=== PATIENT | female | born 1985 | race Caucasian/White ===

== ENCOUNTER 2017-12-17 10:35 | Outpatient (CLI) | payer BC | END 2017-12-17 10:36 | disposition home or self-care (01) | LOC: BICULT 10:35 | PROVIDERS: ATTEND Family Medicine | DX: Z34.82 Encounter for supervision of other normal pregnancy, second trimester (principal) | CPT/HCPCS: 76805 ==

== ENCOUNTER 2018-05-04 06:33 | Inpatient (IN) | payer BC ==
[2018-05-04] MEDS ORDERED: Misoprostol 200 MCG TAB PR PRN ×2 (07:17→09:22)
[2018-05-04] MEDS ORDERED: Ondansetron HCl/PF 4 MG/2 ML Vial IVP PRN ×3 (07:17→17:18)
[2018-05-04] MEDS ORDERED: Lidocaine 1% (PF) 30 ML VIAL SC PRN ×2 (07:17→09:24)
[2018-05-04] MEDS ORDERED: Ibuprofen 800 MG TAB PO PRN ×2 (07:17→09:25)
[2018-05-04] MEDS ORDERED: NS w/ Oxytocin 10 units 500 ML IV SCH ×2 (07:17)
[2018-05-04] MEDS ORDERED: NS / Oxytocin 40 units/1000ml 1,000 ML IV PRN (07:17)
[2018-05-04] MEDS ORDERED: Promethazine HCl 25 MG/ML VIAL IM PRN ×2 (07:17→09:27)
[2018-05-04] MEDS ORDERED: Lactated Ringer's 1,000 ML IV SCH ×3 (07:17→09:27)
[2018-05-04] MEDS ORDERED: Acetaminophen 500 MG TAB PO PRN ×2 (07:17→09:27)
[2018-05-04 07:39] LABS: Hemoglobin 11.4 g/dL (12.0-16.0); Mean Corpuscular HGB CONC 34.3 g/dL (32.0-36.0); Mean Corpuscular Hemoglobin 29.6 pg (27.0-31.0); Mean Corpuscular Volume 86.3 fL (78.0-98.0); Mean Platelet Volume 8.7 fL (7.4-10.4); Platelet Count 226 thou/uL (130-400); RBC Distribution Width 11.5 % (11.5-14.5); Red Blood Cell (RBC) Count 3.86 mill/uL (4.20-5.40); White Blood Cell (WBC) Count 8.9 thou/uL (4.8-10.8)
[2018-05-04 07:41] VITALS: BMI 28.1
[2018-05-04] MEDS ORDERED: Oxytocin 10 UNITS/ML VIAL ONE (07:42)
[2018-05-04] MEDS ORDERED: NS w/ Oxytocin 10 units 500 ML ONE (07:42)
[2018-05-04] MEDS ORDERED: Lanolin Ointment 7 GM TUBE TOP PRN ×2 (08:03→17:18)
[2018-05-04] MEDS ORDERED: Benzocaine/Menthol 20-0.5% 60 ML CAN TOP PRN (08:03)
[2018-05-04] MEDS ORDERED: NS / Oxytocin 40 units/1000ml 1,000 ML IV SCH ×2 (08:03→17:18)
[2018-05-04] MEDS ORDERED: traMADol HCl 50 MG TAB PO PRN (08:03)
[2018-05-04] MEDS ORDERED: Preparation H Ointment 28 GM TUBE PR PRN ×2 (08:03→17:18)
[2018-05-04] MEDS ORDERED: Milk Of Magnesia 30 ML UDCUP PO PRN ×2 (08:03→17:18)
[2018-05-04] MEDS ORDERED: Bisacodyl 10 MG SUPP PR PRN ×2 (08:03→17:18)
[2018-05-04] MEDS ORDERED: diphenhydrAMINE 25 MG CAP PO PRN ×2 (08:03→17:18)
[2018-05-04 08:27] LABS: Syphilis Antibody Nonreactive (Nonreactive); Syphilis Antibody Index 0.04 S/CO (<1.00 Non-Reactive)
[2018-05-04 08:28] LABS: HBSAg Index 0.19 S/CO (0-0.99); Hep B Surf Ag Non-Reactive S/CO (NonReactive)
[2018-05-04] MEDS ORDERED: DISCONTINUE ALL PREVIOUS NARCOTICS FS SCH (08:30)
[2018-05-04] MEDS ORDERED: Bupivacaine 0.5% 20 ML, fentaNYL Citrate/PF 400 MCG in Sodium Chloride 0.9% 72 ML EPIDURAL SCH (08:30)
[2018-05-04] MEDS ORDERED: Ferrous Sulfate 325 MG TAB PO SCH ×2 (09:00→17:00)
[2018-05-04] MEDS ORDERED: Prenatal Vitamin 1 TAB PO SCH (09:00)
[2018-05-04] MEDS ORDERED: Docusate Calcium (SURFAK) 240 MG CAP PO SCH (09:00)
[2018-05-04] MEDS ORDERED: Carboprost 250 MCG/ML AMP IM PRN (09:23)
[2018-05-04] MEDS ORDERED: Methylergonovine 0.2 MG/ML VIAL IM PRN (09:23)
[2018-05-04] MEDS ORDERED: NS w/ Oxytocin 10 units 500 ML IVPB SCH (09:30)
[2018-05-04] MEDS ORDERED: Naloxone HCl 0.4 mg/ml Vial IVP PRN ×2 (09:33)
[2018-05-04] MEDS ORDERED: ePHEDrine/0.9% NaCl/PF SYRINGE 50 mg/10 ml SLOW IVP PRN (09:33)
[2018-05-04] MEDS ORDERED: Lactated Ringer's 500 ML IV PRN (09:33)
[2018-05-04] MEDS ORDERED: fentaNYL Citrate/PF 400 MCG, Bupivacaine 0.5% 20 ML in Sodium Chloride 0.9% 72 ML EPIDURAL SCH (09:45)
[2018-05-04] MEDS ORDERED: Communication Order-Pharmacy FS SCH (09:45)
[2018-05-04] MEDS ORDERED: Ibuprofen 800 MG TAB PO SCH (14:00)
[2018-05-04] MEDS ORDERED: Adacel (T-DAP) 0.5 ML VIAL IM ONE (17:18)
[2018-05-04] MEDS: Docusate Calcium (SURFAK) 240 MG CAP PO SCH (20:32)
[2018-05-04] MEDS: Ibuprofen 800 MG TAB PO SCH (20:32)
[2018-05-04] MEDS ORDERED: Bupivacaine/Epinephrine 0.25% 30 ML VIAL ONE (21:00)
[2018-05-05] MEDS: Ibuprofen 800 MG TAB PO SCH ×3 (05:23→21:12)
[2018-05-05] MEDS: Docusate Calcium (SURFAK) 240 MG CAP PO SCH ×2 (09:50→21:11)
[2018-05-05] MEDS: Prenatal Vitamin 1 TAB PO SCH (09:50)
[2018-05-05] MEDS: traMADol HCl 50 MG TAB PO PRN (20:03)
[2018-05-06] MEDS: traMADol HCl 50 MG TAB PO PRN (04:07)
[2018-05-06] MEDS: Ibuprofen 800 MG TAB PO SCH ×2 (06:50→08:47)
[2018-05-06 07:56] VITALS: BP 123/73; TEMP 98.9
[2018-05-06] MEDS: Docusate Calcium (SURFAK) 240 MG CAP PO SCH (08:47)
[2018-05-06] MEDS: Prenatal Vitamin 1 TAB PO SCH (08:47)
== END 2018-05-06 09:35 | disposition home or self-care (01) | DRG 775 ==
LOC: L&D 06:33 → 3SW 17:26 → EDSTATUS 05-08 14:24
PROVIDERS: ADMIT Family Medicine; ATTEND Family Medicine
PROC: 10E0XZZ Delivery of Products of Conception, External Approach (ICD-10-PCS; principal; 2018-05-04)
PROC: 10907ZC Drainage of Amniotic Fluid, Therapeutic from Products of Conception, Via Natural or Artificial Opening (ICD-10-PCS; 2018-05-04)
PROC: 3E033VJ Introduction of Other Hormone into Peripheral Vein, Percutaneous Approach (ICD-10-PCS; 2018-05-04)
DX: O80 Encounter for full-term uncomplicated delivery (principal); Z3A.39 39 weeks gestation of pregnancy; Z37.0 Single live birth
CPT/HCPCS: 36415; 51702; 85027; 86780; 86850; 86900; 86901; 87340; J2590; J3010; J3490; J7050

== ENCOUNTER 2019-02-10 10:28 | Outpatient (CLI) | payer BC ==
--- NOTE | 2019-02-10 12:26 | ULT ---
OB ULTRASOUND: HISTORY: female. Evaluate size, dates, and anatomy. TECHNIQUE: Multiplanar, wong scale, and color Doppler images were obtained in a transabdominal ultrasound. FINDINGS: There is a single live intrauterine with heart rate of 146 b.p.m. A survey was perfo rmed which is unremarkable. The head, intracranial structures, heart, stomach, kidneys, umbilical co rd, umbilical cord insertion, bladder, spine, face, and extremities were unremarkable. Estimated fet al weight is 237 gm. Average age of the fetus based off today's examination is 18 weeks 5 days. The following measurements were taken and dates based off these measurements are as follows: BPD 4.24 cm, 18 weeks 6 days HC 16.07 cm, 19 weeks 0 days AC 12.82 cm, 18 weeks 3 days FL 2.70 cm, 18 weeks 2 days The placenta is anterior in location without evidence of placenta previa. The cervix is normal in le ngth. Amniotic fluid volume is subjectively within normal limits. IMPRESSION: Single live intrauterine with estimated age of 18 weeks 5 days. POS: DEANNE
== END 2019-02-10 10:29 | disposition home or self-care (01) ==
LOC: BICULT 10:28
PROVIDERS: ATTEND Family Medicine
DX: Z34.82 Encounter for supervision of other normal pregnancy, second trimester (principal); Z3A.18 18 weeks gestation of pregnancy
CPT/HCPCS: 76805

== ENCOUNTER 2019-07-04 19:14 | Inpatient (IN) | payer BC ==
[~2019-07-04 19:14] MED LIST: Bupivacaine 0.25% HCL 30 ML VIAL ONE
[2019-07-04 19:43] VITALS: BMI 32.8
[2019-07-04] MEDS ORDERED: Zolpidem Tartrate 5 MG TAB PO PRN (19:57)
[2019-07-04] MEDS ORDERED: Acetaminophen/Codeine 30-300mg Tablet PO PRN (19:57)
[2019-07-04] MEDS ORDERED: Ibuprofen 800 MG TAB PO PRN (19:57)
[2019-07-04] MEDS ORDERED: Acetaminophen 500 MG TAB PO PRN (19:57)
[2019-07-04] MEDS ORDERED: HYDROcodone/Acetaminophen 5/325 mg Tablet PO PRN (19:57)
[2019-07-04] MEDS ORDERED: hydrALAZINE 20 MG/ML VIAL SLOW IVP PRN (19:57)
[2019-07-04] MEDS ORDERED: Butorphanol Tartrate 1 MG/ML VIAL SLOW IVP PRN (19:57)
[2019-07-04] MEDS ORDERED: Ondansetron PF 4 MG/2 ML Vial IVP PRN (19:57)
[2019-07-04] MEDS ORDERED: Promethazine HCl 25 MG/ML VIAL IM PRN (19:57)
[2019-07-04] MEDS ORDERED: Lidocaine 1% (PF) 30 ML VIAL SC PRN (19:57)
[2019-07-04] MEDS ORDERED: Misoprostol 200 MCG TAB PR PRN (19:57)
[2019-07-04] MEDS ORDERED: NS w/ Oxytocin 10 units 500 ML IV SCH ×2 (20:00)
[2019-07-04] MEDS: Lactated Ringer's 1,000 ML IV SCH (20:14)
[2019-07-04] MEDS: Misoprostol 100 MCG TAB VAG SCH (20:21)
[2019-07-04 20:26] LABS: Hemoglobin 11.7 g/dL (12.0-16.0); Mean Corpuscular HGB CONC 34.9 g/dL (32.0-36.0); Mean Corpuscular Hemoglobin 30.8 pg (27.0-31.0); Mean Corpuscular Volume 88.4 fL (78.0-98.0); Mean Platelet Volume 9.3 fL (7.4-10.4); Platelet Count 196 thou/uL (130-400); RBC Distribution Width 11.5 % (11.5-14.5); White Blood Cell (WBC) Count 11.1 thou/uL (4.8-10.8)
[2019-07-04 21:04] LABS: Syphilis Antibody Nonreactive (Nonreactive); Syphilis Antibody Index 0.05 S/CO (<1.00 Non-Reactive)
[2019-07-04] MEDS ORDERED: Calcium Carbonate 500 MG ChewTAB PO PRN (22:10)
[2019-07-04 22:47] LABS: HBSAg Index 0.26 S/CO (0-0.99); Hep B Surf Ag Non-Reactive S/CO (NonReactive)
[2019-07-05] MEDS ORDERED: Fentanyl 4 mcg/Bup 0.1% Cadd 100 ML ONE ×2 (01:29→07:37)
[2019-07-05] MEDS: Lactated Ringer's 1,000 ML IV SCH ×3 (01:57→13:43)
[2019-07-05] MEDS ORDERED: Naloxone HCl 0.4 mg/ml Vial IVP PRN ×2 (01:59)
[2019-07-05] MEDS ORDERED: ePHEDrine/0.9% NaCl/PF SYRINGE 50 mg/10 ml SLOW IVP PRN (01:59)
[2019-07-05] MEDS ORDERED: Promethazine HCl 25 MG/ML VIAL IM PRN (01:59)
[2019-07-05] MEDS ORDERED: Lactated Ringer's 500 ML IV PRN (01:59)
[2019-07-05] MEDS ORDERED: Ondansetron PF 4 MG/2 ML Vial IVP PRN ×2 (01:59→14:03)
[2019-07-05] MEDS ORDERED: Acetaminophen 325 MG TAB PO PRN (01:59)
[2019-07-05] MEDS ORDERED: diphenhydrAMINE 50 MG/ML VIAL IVP PRN (01:59)
[2019-07-05] MEDS ORDERED: Fentanyl 4 mcg/Bupivacaine 0.1% Cassette 100 ML EPIDURAL SCH (02:00)
[2019-07-05] MEDS ORDERED: Communication Order-Pharmacy FS SCH (02:00)
[2019-07-05] MEDS: Misoprostol 100 MCG TAB VAG SCH ×3 (02:11→16:24)
[2019-07-05] MEDS ORDERED: Fentanyl 100 MCG/2 ML VIAL ONE (08:51)
[2019-07-05] MEDS ORDERED: NS / Oxytocin 40 units/1000ml 1,000 ML ONE (10:50)
[2019-07-05] MEDS ORDERED: Lidocaine 1% (PF) 30 ML VIAL ONE (10:50)
[2019-07-05] MEDS: NS / Oxytocin 40 units/1000ml 1,000 ML IV PRN ×2 (13:34→14:53)
[2019-07-05] MEDS ORDERED: hydrALAZINE 20 MG/ML VIAL SLOW IVP PRN (14:03)
[2019-07-05] MEDS ORDERED: traMADol HCl 50 MG TAB PO PRN (14:03)
[2019-07-05] MEDS ORDERED: Benzocaine-Menthol 82.5 ML CAN TOP PRN (14:03)
[2019-07-05] MEDS ORDERED: HYDROcodone/Acetaminophen 5/325 mg Tablet PO PRN (14:03)
[2019-07-05] MEDS ORDERED: Lanolin Ointment 7 GM TUBE TOP PRN (14:03)
[2019-07-05] MEDS ORDERED: Bisacodyl 10 MG SUPP PR PRN (14:03)
[2019-07-05] MEDS ORDERED: NS / Oxytocin 40 units/1000ml 1,000 ML IV SCH (14:03)
[2019-07-05] MEDS ORDERED: Milk Of Magnesia 30 ML UDCUP PO PRN (14:03)
[2019-07-05] MEDS ORDERED: Preparation H Ointment 28 GM TUBE PR PRN (14:03)
[2019-07-05] MEDS ORDERED: Acetaminophen/Codeine 30-300mg Tablet PO PRN (14:03)
[2019-07-05] MEDS ORDERED: diphenhydrAMINE 25 MG CAP PO PRN (14:03)
[2019-07-05] MEDS: Ferrous Sulfate 325 MG TAB PO SCH (16:23)
[2019-07-05] MEDS: Ibuprofen 800 MG TAB PO SCH ×2 (16:56→20:01)
[2019-07-05] MEDS: Docusate Calcium (SURFAK) 240 MG CAP PO SCH (20:01)
[2019-07-06] MEDS: Ibuprofen 800 MG TAB PO SCH ×2 (05:09→13:56)
[2019-07-06] MEDS: Ferrous Sulfate 325 MG TAB PO SCH (09:17)
[2019-07-06] MEDS: Docusate Calcium (SURFAK) 240 MG CAP PO SCH (09:18)
[2019-07-06 12:04] VITALS: BP 107/67; TEMP 98.1
== END 2019-07-06 14:20 | disposition home or self-care (01) | DRG 807 ==
LOC: L&D 19:14 → 3SW 07-05 16:49
PROVIDERS: ADMIT Family Medicine; ATTEND Family Medicine
PROC: 3E033VJ Introduction of Other Hormone into Peripheral Vein, Percutaneous Approach (ICD-10-PCS; principal; 2019-07-04)
PROC: 10E0XZZ Delivery of Products of Conception, External Approach (ICD-10-PCS; 2019-07-04)
DX: O80 Encounter for full-term uncomplicated delivery (principal); Z37.0 Single live birth; Z3A.39 39 weeks gestation of pregnancy
CPT/HCPCS: 36415; 51702; 85027; 86780; 86850; 86900; 86901; 87340; J2001; J2405; J2590; J3010; S0020

== ENCOUNTER 2019-10-04 14:38 | Emergency (ER) | payer BC ==
[2019-10-04 17:29] LABS: #Eosinphils 0.1 thou/uL (0.0-0.7); #Monocytes 0.7 thou/uL (0.11-0.59); #Neutrophils 3.2 thou/uL (1.40-6.50); %Basophils 0.4 % (0.0-1.0); %Eosinophils 1.6 % (0.0-10.0); %Lymphocytes 32.9 % (21.0-51.0); %Monocytes 11.3 % (0.0-10.0); %Neutrophils 53.9 % (42.0-75.0); Hemoglobin 14.9 g/dL (12.0-16.0); Mean Corpuscular HGB CONC 34.2 g/dL (32.0-36.0); Mean Corpuscular Hemoglobin 29.9 pg (27.0-31.0); Mean Corpuscular Volume 87.4 fL (78.0-98.0); Mean Platelet Volume 8.3 fL (7.4-10.4); Platelet Count 256 thou/uL (130-400); RBC Distribution Width 10.9 % (11.5-14.5); Red Blood Cell (RBC) Count 4.98 mill/uL (4.20-5.40); White Blood Cell (WBC) Count 5.9 thou/uL (4.8-10.8)
[2019-10-04] MEDS ORDERED: diphenhydrAMINE 50 MG/ML VIAL ONE (17:31)
[2019-10-04] MEDS ORDERED: Metoclopramide HCl 10 MG/2 ML VIAL ONE (17:31)
--- NOTE | 2019-10-04 17:35 | CT ---
CT Brain WO Con: 10/04/2019 5:19 PM CLINICAL HISTORY: Headache. IMAGING TECHNIQUE: Multiple CT images were obtained of the brain without IV contrast. COMPARISON: None. FINDINGS: Brain: No acute infarct or hemorrhage is evident. No midline shift. Ventricles: Normal. No hydrocephalus. Skull: Intact. Visualized Paranasal sinuses: Clear. Mastoid air cells:Clear. Extracranial soft tissues:Normal. IMPRESSION: No acute intracranial abnormality.
[2019-10-04 17:36] LABS: BHCG - Serum Negative (NEGATIVE); Pregs Control Background? CLEAR/WHITE (CLR/WHITE); Pregs Control Bar Appear? YES (CONTROL BAR)
[2019-10-04 17:43] LABS: ALT (SGPT) 27 U/L (8-55); AST (SGOT) 19 U/L (5-34); Acetaminophen Less than 6.0 mcg/mL (10.0-30.0); Albumin 4.4 g/dL (3.5-5.0); Alcohol Less than 10 mg/dL (Less than 10); Alkaline Phosphatase 83 U/L (40-110); Anion Gap 11 mmol/L (10-20); BUN (Urea Nitrogen) 10 mg/dL (7.0-18.7); Bilirubin, Total 1.1 mg/dL (0.2-1.2); Calc. Creatinine Clearance 0 mL/min (70-130); Calcium 9.7 mg/dL (7.8-10.44); Carbon Dioxide 28 mmol/L (22-29); Chloride 105 mmol/L (98-107); Estimated GFR-MDRD 87; Globulin 3.3 g/dL (2.4-3.5); Glucose 84 mg/dL (70-105); Protein, Total 7.7 g/dL (6.0-8.3); Salicylate Less than 8.0 mg/dL (15.0-30.0); Sodium 140 mmol/L (136-145)
[2019-10-04 19:19] LABS: Bilirubin Negative (Negative); Blood, Urine Negative (Negative); Clarity Clear (Clear); Glucose, Urine (Dipstick) Normal (Negative); Leukocyte Negative Leu/uL (Negative); Nitrite Negative (Negative); Protein, Urine (Dipstick) Negative (Neg-Trace); Urobilinogen Normal mg/dL (Less than 2)
[2019-10-04 19:33] LABS: Amphetamine Not Detected (NotDetected); Barbiturates Screen Not Detected (NotDetected); Benzodiazepine Screen Not Detected (NotDetected); Cocaine Metabolite Screen Not Detected (NotDetected); Medtox Control Line Valid? VALID (VALID); Medtox Reader # READER 1; Methadone Not Detected (NotDetected); Methamphetamine Not Detected (NotDetected); Opiate Screen Not Detected (NotDetected); Oxycodone Screen Not Detected (NotDetected); Phencyclidine (PCP) Not Detected (NotDetected); THC/Cannabinoid Screen Not Detected (NotDetected); Tricyclic Screen Not Detected (NotDetected)
[2019-10-04 20:31] LABS: T4 19.9 ug/dL (4.87-11.72)
== END 2019-10-04 19:46 | disposition home or self-care (01) ==
LOC: ERS 14:38
DX: E05.90 Thyrotoxicosis, unspecified without thyrotoxic crisis or storm (principal)
CPT/HCPCS: 70450; 80053; 80306; 80307; 81003; 83880; 84436; 84443; 84481; 84484; 84703; 85025; 85379; 93005; 96365; 96366; 96375; J1200; J2765

== ENCOUNTER 2021-08-08 14:24 | Outpatient (CLI) | payer BC | END 2021-08-08 14:25 | disposition home or self-care (01) | LOC: BICRAD 14:24 | PROVIDERS: ATTEND Family Medicine | DX: M25.551 Pain in right hip (principal); M25.552 Pain in left hip; M54.50 Low back pain, unspecified; M16.11 Unilateral primary osteoarthritis, right hip | CPT/HCPCS: 72100 ==

== ENCOUNTER 2022-03-19 14:09 | Outpatient (CLI) | payer BC | END 2022-03-19 14:10 | disposition home or self-care (01) | LOC: BICRAD 14:09 | PROVIDERS: ATTEND Internal Medicine Rheumatology | DX: M46.1 Sacroiliitis, not elsewhere classified (principal); Z98.890 Other specified postprocedural states | CPT/HCPCS: 72202 ==